=== PATIENT | male | born 1965 | race Caucasian/White ===

== ENCOUNTER 2017-01-14 13:30 | Emergency (ER) | payer MEDICAID ==
[~2017-01-14] VITALS: Ht 175.3 cm; Wt 72.6 kg
[2017-01-14 13:50] VITALS: BP 93/67
--- NOTE | 2017-01-14 14:41 | Emergency Room Report ---
History of Present Illness General Chief Complaint: Abnormal Labs Source: Medical Record, EMS Present Illness HPI This patient is brought in from a shelter facility. He has a history of encephalopathy, subdural hemorrhage, schizophrenia and bipolar disorder. He presents for abnormal labs. The patient himself has no specific complaints. He underwent routine labs and was found to have thrombocytopenia. He presents for further evaluation. He does have a history of hepatitis C and thrombocytopenia. Allergies: Coded Allergies: DIVALPROEX SODIUM (Verified Allergy, Intermediate, 01/14/17) Patient History Past Medical History: see triage record, old chart reviewed, CVA/TIA, seizures , psych hx, renal disease, other - HCV Past Surgical History: other - craniectomy Social History: Denies: alcohol use, drug use, smoking Reviewed Nursing Documentation: PMH: Agreed, PSxH: Agreed Nursing Documentation-PMH Hx Cardiac Problems: No Hx Hypertension: No Hx Pacemaker: No Hx Asthma: No Hx COPD: No Hx Gastrointestinal Problems: Yes - anemia,thrombocytopnea History Of Psychiatric Problem: Yes Hx Neurological Problems: Yes - neoplasm of brain,anxiety disorder Hx Cerebrovascular Accident: No Hx Seizures: Yes Review of Systems All Other Systems: negative except mentioned in HPI Physical Exam Vital Signs Date Time Temp Pulse Resp B/P Pulse Ox O2 Delivery O2 Flow Rate FiO2 01/14/17 13:36 98.1 111 18 111/82 99 Sp02 EP Interpretation: reviewed, normal General Appearance: no apparent distress, alert, GCS 15, non-toxic Head: normocephalic, atraumatic Eyes: bilateral eye PERRL, bilateral eye normal inspection ENT: hearing grossly normal, normal pharynx, no angioedema, normal voice Neck: full range of motion, supple/symm/no masses Respiratory: chest non-tender, lungs clear, normal breath sounds, speaking full sentences Cardiovascular #1: no edema, tachycardia Gastrointestinal: normal bowel sounds, non tender, soft, non-distended, no guarding, no rebound Rectal: deferred Musculoskeletal: other - At baseline Neurologic: alert, responsive, sensory intact, other - L. hemiplegia Psychiatric: anxious Skin: warm/dry, well hydrated, other - See RN skin exam Medical Decision Making Diagnostic Impression: Primary Impression: Thrombocytopenia Additional Impression: Hepatitis C virus ER Course This patient was sent over for thrombocytopenia from a shelter facility. He has a history of hepatitis C and likely has cirrhosis. Patient himself has no complaints and has a nontender abdomen exam. Patient is well appearing overall. There is no evidence of bleeding. The patient's platelet count is 54 which is noncritical and does not require any intervention at this time. Dr. Fonseca was contacted and he is comfortable with this patient returning to the shelter facility. I did not identify an emergency medical condition. This is a benign evaluation overall. The patient is discharged under the care of his primary care physician. Labs Test 01/14/17 14:44 White Blood Count 10.7 K/UL (4.8-10.8) Red Blood Count 5.14 M/UL (4.70-6.10) Hemoglobin 17.0 G/DL (14.2-18.0) Hematocrit 50.8 % (42.0-52.0) Mean Corpuscular Volume 99 FL (80-99) Mean Corpuscular Hemoglobin 33.0 PG (27.0-31.0) Mean Corpuscular Hemoglobin Concent 33.4 G/DL (32.0-36.0) Red Cell Distribution Width 12.4 % (11.6-14.8) Platelet Count 54 K/UL (150-450) Mean Platelet Volume 15.9 FL (6.5-10.1) Neutrophils (%) (Auto) % (45.0-75.0) Lymphocytes (%) (Auto) % (20.0-45.0) Monocytes (%) (Auto) % (1.0-10.0) Eosinophils (%) (Auto) % (0.0-3.0) Basophils (%) (Auto) % (0.0-2.0) Prothrombin Time 10.7 SEC (9.30-11.50) Prothromb Time International Ratio 1.1 (0.9-1.1) Activated Partial Thromboplast Time 23 SEC (23-33) Sodium Level 143 mEQ/L (135-145) Potassium Level 4.6 mEQ/L (3.4-4.9) Chloride Level 104 mEQ/L (98-107) Carbon Dioxide Level 26 mEQ/L (20-30) Anion Gap 13 (5-15) Blood Urea Nitrogen 23 mg/dL (7-23) Creatinine 1.0 mg/dL (0.7-1.2) Estimat Glomerular Filtration Rate > 60 mL/min (>60) Glucose Level 116 mg/dL (74-106) Calcium Level 8.8 mg/dL (8.6-10.2) Total Bilirubin 0.3 mg/dL (0.0-1.2) Aspartate Amino Transf (AST/SGOT) 40 U/L (5-40) Alanine Aminotransferase (ALT/SGPT) 112 U/L (3-41) Alkaline Phosphatase 60 U/L (40-129) Total Creatine Kinase 42 U/L (38-174) Total Protein 6.5 g/dL (6.6-8.7) Albumin 3.5 g/dL (3.5-5.2) Globulin 3.0 g/dL Albumin/Globulin Ratio 1.1 (1.0-2.7) Last Vital Signs Date Time Temp Pulse Resp B/P Pulse Ox O2 Delivery O2 Flow Rate FiO2 01/14/17 13:36 98.1 111 18 111/82 99 Disposition: HOME, SELF-CARE Condition: Improved Referrals: NON PHYSICIAN (PCP) JAGRUTI HERNANDEZ D.O. Jan 14, 2017 14:41
[2017-01-14 14:51] LABS: MEAN CORPUSCULAR HGB CONC 33.4 G/DL (32.0-36.0); MEAN CORPUSCULAR VOLUME 99 FL (80-99); MEAN PLATELET VOLUME 15.9 FL (6.5-10.1); PLATELET COUNT 54 K/UL (150-450); RED BLOOD COUNT 5.14 M/UL (4.70-6.10); RED CELL DISTRIBUTION WIDTH 12.4 % (11.6-14.8); WHITE BLOOD COUNT 10.7 K/UL (4.8-10.8)
[2017-01-14 15:00] VITALS: BP 100/65
[2017-01-14 15:03] LABS: INR 1.1 (0.9-1.1); PROTHROMBIN TIME 10.7 SEC (9.30-11.50)
[2017-01-14 15:10] LABS: ALANINE AMINOTRANSFERASE 112 U/L (3-41); ALBUMIN/GLOBULIN RATIO 1.1 (1.0-2.7); ANION GAP 13 (5-15); ASPARTATE AMINO TRANSFERASE 40 U/L (5-40); CALCIUM 8.8 mg/dL (8.6-10.2); CARBON DIOXIDE 26 mEQ/L (20-30); CHLORIDE 104 mEQ/L (98-107); GLOMERULAR FILTRATION RATE > 60 mL/min (>60); HEMOLYSIS 22; POTASSIUM 4.6 mEQ/L (3.4-4.9); SODIUM 143 mEQ/L (135-145); TOTAL PROTEIN 6.5 g/dL (6.6-8.7)
[2017-01-14 15:49] VITALS: BP 100/65
[2017-01-14 16:16] LABS: BAND NEUTROPHILS % (MANUAL) 0 % (0-8); BASOPHILS % (MANUAL) 0 % (0-2); EOSINOPHILS % (MANUAL) 0 % (0-3); LYMPHOCYTES % (MANUAL) 20 % (20-45); NEUTROPHILS % (MANUAL) 77 % (45-75); PLATELET ESTIMATE DECREASED; TOTAL CELLS COUNTED 100
[2017-01-14 16:17] LABS: MACROCYTES 1+; POLYCHROMASIA 1+
== END 2017-01-14 15:49 | disposition home or self-care (01) ==
LOC: EMR 13:56
DX: D69.6 Thrombocytopenia, unspecified (principal); B19.20 Unspecified viral hepatitis C without hepatic coma; Z86.73 Personal history of transient ischemic attack (TIA), and cerebral infarction without residual deficits; F20.9 Schizophrenia, unspecified; F31.9 Bipolar disorder, unspecified; F41.9 Anxiety disorder, unspecified; Z88.8 Allergy status to other drugs, medicaments and biological substances; Z86.011 Personal history of benign neoplasm of the brain
CPT/HCPCS: 36415; 80053; 82550; 85007; 85025; 85610; 85730; 99283